=== PATIENT | female | born 1935 | race Caucasian/White ===

== ENCOUNTER 2022-07-15 14:32 | Emergency (ER) | payer BC, OTHER ==
[~2022-07-15] VITALS: Ht 167.6 cm; Wt 72.0 kg
[2022-07-15 14:32] VITALS: BP 180/82
[2022-07-15 16:27] LABS: Basophils # (auto) 0 10 ^3/uL (0-0.2); Basophils % (auto) 0.2 % (0.0-2.0); Eosinophils # (auto) 0.1 10 ^3/uL (0-0.8); Hematocrit 37.9 % (36.0-46.0); Hemoglobin 12.6 g/dL (12.2-16.2); Lymphocytes # (auto) 1.7 10 ^3/uL (0.4-5.4); Lymphocytes % (auto) 30.1 % (10.0-50.0); Mean Corpuscular Hemoglobin 28.7 pg (28.0-32.0); Mean Corpuscular Hgb Conc. 33.3 g/dL (32.0-36.0); Mean Corpuscular Volume 86.3 fL (80.0-100.0); Monocytes # (auto) 0.7 10 ^3/uL (0-1.3); Monocytes % (auto) 11.5 % (0.0-12.0); Neutrophils # (auto) 3.3 10 ^3/uL (1.6-8.6); Neutrophils % (auto) 57.2 % (37.0-80.0); Nucleated Red Blood Cells % 0.1 %; Red Cell Distribution Width 16.8 % (11.8-14.3); White Blood Cell 5.7 10^3/uL (4.4-10.8)
[2022-07-15 16:45] LABS: Albumin 3.9 g/dL (3.4-5.0); BUN/Creatinine Ratio 19.5; Calcium 9.2 mg/dL (8.5-10.1); Potassium 4.6 mmol/L (3.5-5.1)
[2022-07-15 16:48] LABS: Bilirubin, Total 0.6 mg/dL (0.2-1.0)
== END 2022-07-17 03:05 | disposition left against medical advice (07) ==
LOC: EDBD 14:32 → ER 14:32
DX: U07.1 COVID-19 (principal); R53.1 Weakness; R05.9 Cough, unspecified; Z53.21 Procedure and treatment not carried out due to patient leaving prior to being seen by health care provider
CPT/HCPCS: 36415; 80053; 83605; 83880; 84484; 85025; 87040; 93005